=== PATIENT | female | born 1980 | race Caucasian/White ===

== ENCOUNTER 2020-11-27 13:01 | Emergency (ER) | payer OTHER ==
[2020-11-27] MEDS ORDERED: HYDROmorphone 0.5 MG/0.5 ML Syringe IVPUSH ONE ×2 (13:31→16:11)
[2020-11-27] MEDS ORDERED: Sodium Chloride 0.9% 1,000 ML IV ONE (13:31)
[2020-11-27] MEDS ORDERED: Ondansetron 4 MG/2 ML SDV IVPUSH ONE (13:31)
--- NOTE | 2020-11-27 13:39 | EDM.PDOC ---
ED HPI GENERAL MEDICAL PROBLEM - General Chief Complaint: Abdominal Pain Stated Complaint: ABDOMINAL PAIN Time Seen by Provider: 11/27/20 13:24 Source of Information: Reports: Patient History Limitations: Reports: No Limitations - History of Present Illness INITIAL COMMENTS - FREE TEXT/NARRATIVE: 40-year-old female presents the emergency department today with complaints of right upper quadrant abdominal pain nausea and vomiting. She states she noticed the onset of this about 2 hours after eating a burrito at a [place] restaurant last evening. She states 2 hours after she developed right upper quadrant pain nausea and vomiting numerous times. She states in the past she has noticed when she eats fatty or greasy foods that she does have some discomfort to her right upper quadrant. She states she still does have her gallbladder and appendix however she does have a history of hysterectomy. She denies any recent fever or chills or diarrhea or constipation associated with this. She states she was unable to sleep last night due to the right upper quadrant abdominal pain however she still did eat some toast and chicken wings at about 1030 this morning. She states she is otherwise healthy and does not take any prescription medications. 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 [No Known Home Meds] 11/27/20 [History] Past Medical History Musculoskeletal History: Reports: Other (See Below) Other Musculoskeletal History: bunionectomy - Past Surgical History HEENT Surgical History: Reports: Tonsillectomy Female Surgical History: Reports: Hysterectomy Social & Family History - Tobacco Use Tobacco Use Status *Q: Never Tobacco User - Caffeine Use Caffeine Use: Reports: Coffee, Soda, Tea - Recreational Drug Use Recreational Drug Use: No ED ROS GENERAL - Review of Systems Review Of Systems: Comprehensive ROS is negative, except as noted in HPI. ED EXAM, GI/ABD - Physical Exam Exam: See Below Exam Limited By: No Limitations General Appearance: Alert, WD/WN, Mild Distress Ears: Normal External Exam, Hearing Grossly Normal Nose: Normal Inspection Throat/Mouth: Normal Inspection, Normal Lips, Normal Voice, No Airway Compromise Head: Atraumatic, Normocephalic Neck: Normal Inspection Respiratory/Chest: No Respiratory Distress, Lungs Clear, Normal Breath Sounds, No Accessory Muscle Use, Chest Non-Tender Cardiovascular: Normal Peripheral Pulses, Regular Rate, Rhythm, No Edema, No Murmur GI/Abdominal Exam: Normal Bowel Sounds, Soft, No Distention, Guarding, Tender (Right upper quadrant) (Female) Exam: Deferred Rectal (Female) Exam: Deferred Back Exam: Normal Inspection, Full Range of Motion Extremities: Normal Inspection, Normal Range of Motion Neurological: Alert, Oriented, Normal Cognition Psychiatric: Normal Affect, Normal Mood Skin Exam: Warm, Dry, Intact, Normal Color, No Rash Lymphatic: No Adenopathy Course - Vital Signs Text/Narrative:: 40-year-old female who presents to the emergency department with complaints of right upper quadrant abdominal pain that started 2 hours after eating a [place] burrito last evening. She had subsequent nausea and vomiting noted. She states she vomited numerous times throughout the night and abdominal pain continued through the night. She states it was slightly better this morning at about 1030 she had a piece of toast and some chicken wings and the pain came back. She states she is nauseated at this time. Denies any recent fever chills or diarrhea or urinary symptoms. I have ordered labs, IV fluids as patient is likely dehydrated due to significant amount of vomiting, Zofran and Dilaudid. She will also have a CT scan of her abdomen and pelvis. Last Recorded V/S: Last Vital Signs Temp 97.3 F 11/27/20 13:19 Pulse 89 11/27/20 13:19 Resp 20 11/27/20 13:19 BP 128/81 11/27/20 13:19 Pulse Ox 99 11/27/20 13:19 - Orders/Labs/Meds Orders: Active Orders 24 hr Category Date Time Status Abdomen Pelvis w Cont [CT] Stat Exams 11/27/20 13:30 Taken Sodium Chloride 0.9% [Saline Flush] Med 11/27/20 15:00 Active 10 ml FLUSH ONETIME PRN Medication Orders Sodium Chloride (Sodium Chloride 0.9% 10 Ml Syringe) 10 ml FLUSH ONETIME PRN PRN Reason: Keep Vein Open Last Admin: 11/27/20 15:01 Dose: 10 ml Documented by: [id number] Labs: Laboratory Tests 11/27/20 11/27/20 Range/Units 14:00 14:00 WBC 9.62 (3.98-10.04) K/mm3 RBC 5.39 H (3.98-5.22) M/mm3 Hgb 15.5 (11.2-15.7) gm/dl Hct 46.9 H (34.1-44.9) % MCV 87.0 (79.4-94.8) fl MCH 28.8 (25.6-32.2) pg MCHC 33.0 (32.2-35.5) g/dl RDW Std Deviation 39.9 (36.4-46.3) fL Plt Count 346 (182-369) K/mm3 MPV 9.7 (9.4-12.3) fl Neut % (Auto) 63.8 (34.0-71.1) % Lymph % (Auto) 23.0 (19.3-51.7) % [place] % (Auto) 8.5 (4.7-12.5) % Eos % (Auto) 2.8 (0.7-5.8) Baso % (Auto) 1.1 (0.1-1.2) % Neut # (Auto) 6.13 (1.56-6.13) K/mm3 Lymph # (Auto) 2.21 (1.18-3.74) K/mm3 [place] # (Auto) 0.82 H (0.24-0.36) K/mm3 Eos # (Auto) 0.27 (0.04-0.36) K/mm3 Baso # (Auto) 0.11 H (0.01-0.08) K/mm3 Sodium 138 (136-145) mEq/L Potassium 4.1 (3.5-5.1) mEq/L Chloride 101 (98-107) mEq/L Carbon Dioxide 26 (21-32) mEq/L Anion Gap 15.1 H (5-15) BUN 14 (7-18) mg/dL Creatinine 1.1 H (0.55-1.02) mg/dL Est Cr Clr Drug Dosing 55.11 mL/min Estimated GFR (MDRD) 54 (>60) mL/min BUN/Creatinine Ratio 12.7 L (14-18) Glucose 92 (74-106) mg/dL Calcium 9.0 (8.5-10.1) mg/dL Total Bilirubin 0.4 (0.2-1.0) mg/dL GGT 19 (5-55) U/L AST 24 (15-37) U/L ALT 30 (14-59) U/L Alkaline Phosphatase 70 (46-116) U/L C-Reactive Protein 1.5 H* (<1.0) mg/dL Total Protein 7.6 (6.4-8.2) g/dl Albumin 3.8 (3.4-5.0) g/dl Globulin 3.8 gm/dL Albumin/Globulin Ratio 1.0 (1-2) Lipase 82 (73-393) U/L Meds: Medications Generic Name Dose Route Start Last Admin Trade Name Freq PRN Reason Stop Dose Admin Sodium Chloride 10 ml 11/27/20 15:00 11/27/20 15:01 Sodium Chloride 0.9% 10 Ml Syringe FLUSH 10 ml ONETIME PRN Administration Keep Vein Open Discontinued Medications Generic Name Dose Route Start Last Admin Trade Name Freq PRN Reason Stop Dose Admin Diatrizoate Meglum/Diatrizoate Sod 90 ml 11/27/20 14:13 11/27/20 14:58 Diatrizoate Meglumine/Diatrizoate Sodium 37% 120 Ml Bottle PO 11/27/20 14:14 90 ml ONETIME ONE Administration Hydromorphone HCl 0.5 mg 11/27/20 13:31 11/27/20 14:09 Hydromorphone 0.5 Mg/0.5 Ml Syringe IVPUSH 11/27/20 13:32 0.5 mg ONETIME ONE Administration Hydromorphone HCl 0.5 mg 11/27/20 16:11 11/27/20 16:30 Hydromorphone 0.5 Mg/0.5 Ml Syringe IVPUSH 11/27/20 16:12 0.5 mg ONETIME ONE Administration Sodium Chloride 1,000 mls @ 999 mls/hr 11/27/20 13:31 11/27/20 14:07 Normal Saline IV 11/27/20 14:31 999 mls/hr ONETIME ONE Administration Iopamidol 100 ml 11/27/20 14:13 Iopamidol 755 Mg/Ml 100 Ml Bottle IVPUSH 11/27/20 14:14 ONETIME ONE Iopamidol 25 ml 11/27/20 14:13 11/27/20 14:59 Iopamidol 612 Mg/Ml 100 Ml Bottle IVPUSH 11/27/20 14:14 100 ml ONETIME ONE Administration Metoclopramide HCl 5 mg 11/27/20 16:11 11/27/20 16:28 Metoclopramide 10 Mg/2 Ml Sdv IVPUSH 11/27/20 16:12 5 mg ONETIME ONE Administration Ondansetron HCl 4 mg 11/27/20 13:31 11/27/20 14:07 Ondansetron 4 Mg/2 Ml Sdv IVPUSH 11/27/20 13:32 4 mg ONETIME ONE Administration - Re-Assessments/Exams Free Text/Narrative Re-Assessment/Exam: 11/27/20 15:28 Hematology reveals a WBC of 9.62, hemoglobin 15.5, hematocrit 46.9, platelet count 346, chemistry reveals a sodium of 138, potassium of 4.1, chloride 101, carbon dioxide 26, anion gap 15.1, BUN 14, creatinine 1.1, glucose 92, GGT 19, AST 24, ALT 30, alk phos 70, C-reactive protein 1.5, lipase 82 11/27/20 16:52 vRad radiologist impression: 1. Solitary gallstone. If clinically indicated, right upper quadrant ultrasound may further Characterize. No definite CT evidence for associated inflammation. 2. Liver shows a tiny low-density lesion left lobe of liver near the gallbladder fossa probably a tiny cyst. Tiny hypodensity along the lateral right lobe of the liver possibly a tiny cyst. Gallbladder and bile ducts show 1.9 cm gallstone. Tiny hypodense lesion posterior upper pole left kidney may represent a small angio myolipoma. Moderate amount of stool throughout the colon. Moderate fluid noted in the distal small bowel. No evidence for bowel obstruction. I discussed these results with the patient and she is agreeing to stay and have an ultrasound completed of her gallbladder. 11/27/20 17:32 Radiologist impression gallbladder ultrasound: 1. Single large gallstone measures 2.2cm. 2. Other portions of the gallbladder ultrasound appear within normal limits. No gallbladder wall thickening or biliary duct dilation is seen. No pericholecystic fluid is seen. Departure - Departure Time of Disposition: 17:33 Disposition: Home, Self-Care 01 Condition: Good Clinical Impression: Cholelithiasis Qualifiers: Cholelithiasis location: gallbladder Cholecystitis presence: without cholecystitis Biliary obstruction: without biliary obstruction Qualified Code(s): K80.20 - Calculus of gallbladder without cholecystitis without obstruction - Discharge Information Instructions: Ibuprofen Dosage Chart, Pediatric Referrals: PCP,None [Primary Care Provider] - Forms: ED Department Discharge Additional Instructions: You were seen in the emergency department today with the right upper quadrant abdominal pain that started after eating [place] food last evening. He also complained of nausea and vomiting. Labs were completed and these did not show any sign of infection. CT scan and ultrasound were completed and these do show that you have stone in your gallbladder however there is no inflammation noted. Recommend that you follow-up with Dr. Amaya, surgeon at [facility], on Sunday. Recommend that you drink clear liquids for the next 24 hours and then you may advance to a bland diet. [place] diet consist of toast, oatmeal, bananas, rice, and applesauce. Stay away from anything spicy or greasy as this can trigger a gallbladder attack. Sepsis Event Note (ED) - Evaluation Sepsis Screening Result: No Definite Risk - Focused Exam Vital Signs: Vital Signs Temp Pulse Resp BP Pulse Ox 11/27/20 13:19 97.3 F 89 20 128/81 99 - My Orders Last 24 Hours: My Active Orders 11/27/20 13:30 Abdomen Pelvis w Cont [CT] Stat 11/27/20 15:00 Sodium Chloride 0.9% [Saline Flush] 10 ml FLUSH ONETIME PRN - Assessment/Plan Last 24 Hours: My Active Orders 11/27/20 13:30 Abdomen Pelvis w Cont [CT] Stat 11/27/20 15:00 Sodium Chloride 0.9% [Saline Flush] 10 ml FLUSH ONETIME PRN
[2020-11-27] MEDS ORDERED: Diatrizoate Meglumine/Diatrizoate Sodium 37% 120 ML Bottle PO ONE (14:13)
[2020-11-27] MEDS ORDERED: Iopamidol 755 Mg/ML 100 ML Bottle IVPUSH ONE (14:13)
[2020-11-27] MEDS: Iopamidol 612 MG/ML 100 ML Bottle IVPUSH ONE ×2 (14:58→14:59)
[2020-11-27] MEDS ORDERED: Sodium Chloride 0.9% 10 ML Syringe FLUSH PRN (15:00)
[2020-11-27] MEDS ORDERED: Metoclopramide 10 MG/2 ML SDV IVPUSH ONE (16:11)
--- NOTE | 2020-11-27 17:18 | US ---
Limited abdominal ultrasound: Multiple real-time images of the gallbladder were obtained. Comparison: Prior CT abdomen and pelvis study performed earlier on the same day (2:58 PM). Single large gallstone is seen. This gallstone measures 2.2 cm in size. No gallbladder wall thickening or biliary duct dilatation seen. No pericholecystic fluid is seen. Impression: 1. Single large gallstone. 2. Other portions of the gallbladder ultrasound appear within normal limits. Diagnostic code #2
--- NOTE | 2020-11-28 09:19 | CT ---
CT abdomen and pelvis Technique: Multiple axial sections were obtained from above the dome of the diaphragm inferiorly through the pubic symphysis. Intravenous and oral contrast was utilized. Reconstructed coronal and sagittal images were obtained. Comparison: No prior abdominal imaging is available. Findings: Visualized lung bases show nothing acute. Liver shows a small hypoechoic area next to the gallbladder with a second small second lesion noted within the right lobe of the liver measuring 3 mm. Both of these findings are most likely due to small cysts. Spleen appears normal. Adrenal glands show no nodule. A single gallstone is noted within the gallbladder measuring about 2.0 cm. Kidneys show symmetric contrast enhancement. Small cyst is noted within the upper left kidney measuring about 6 mm. Pancreas shows no focal abnormality. Abdominal aorta shows no aneurysm. No retroperitoneal adenopathy or mesenteric abnormalities are seen. No pelvic mass or adenopathy is identified. Appendix is seen and is normal in size. Delayed images show contrast within the distal ureters and within the bladder. Bone window settings were reviewed which show slight degenerative change within the lower thoracic spine. No acute osseous abnormality is appreciated. Impression: 1. Single gallstone within the gallbladder. 2. Two small liver lesions most likely representing minimal cysts. Small cyst within the upper left kidney. 3. No acute abnormality is appreciated on CT study of the abdomen and pelvis. Diagnostic code #2 I agree with preliminary report from [facility], finalized on 11/27/20, 4:38 PM CDT, code 1
== END 2020-11-27 17:48 | disposition home or self-care (01) ==
LOC: JD.ED 13:01
DX: K80.20 Calculus of gallbladder without cholecystitis without obstruction (principal)
CPT/HCPCS: 36415; 74177; 76705; 80053; 82977; 83690; 85025; 86140; 96374; 96375; 96376; 99284; J1170; J2405; J2765; J7030; Q9963; Q9967

== ENCOUNTER 2021-03-16 21:24 | Emergency (ER) | payer OTHER ==
--- NOTE | 2021-03-16 21:55 | EDM.PDOC ---
ED HPI GENERAL MEDICAL PROBLEM - General Chief Complaint: Allergic Reaction Stated Complaint: HIVES/ALLERGIC REACTION Time Seen by Provider: 03/16/21 21:49 - History of Present Illness INITIAL COMMENTS - FREE TEXT/NARRATIVE: 41-year-old female presents the emergency room with hives she was a type II. Around 3:00 this afternoon she had a tetanus shot. She started breaking out in hives around 7:00 this evening progressively getting worse she notices on top of her abdomen and her upper extremities more than anything. She is not have any breathing difficulties or shortness of breath. No other complaints at this time. She had a tetanus shot as part of her work-up for an upcoming surgery. - Related Data Allergies Allergy/AdvReac Type Severity Reaction Status Date / Time Tetanus Vaccines and Toxoid Allergy Hives Verified 03/16/21 21:47 Home Meds: Home Meds . [No Known Home Meds] 11/27/20 [History] Past Medical History - Past Health History Medical/Surgical History: Denies Medical/Surgical History Musculoskeletal History: Reports: Other (See Below) Other Musculoskeletal History: bunionectomy - Past Surgical History HEENT Surgical History: Reports: Tonsillectomy GI Surgical History: Reports: Cholecystectomy Female Surgical History: Reports: Hysterectomy Social & Family History - Tobacco Use Tobacco Use Status *Q: Never Tobacco User Second Hand Smoke Exposure: No - Caffeine Use Caffeine Use: Reports: Coffee, Soda, Tea - Recreational Drug Use Recreational Drug Use: No ED ROS ALLERGIC REACTION - Review of Systems Review Of Systems: See Below Constitutional: Reports: No Symptoms HEENT: Reports: No Symptoms Respiratory: Reports: No Symptoms Cardiovascular: Reports: No Symptoms GI/Abdominal: Reports: No Symptoms Skin: Reports: Urticaria (Over extensor surfaces of the forearms upper arms upper abdominal wall) Neurological: Reports: No Symptoms ED EXAM GENERAL NO PERIP PULSE - Physical Exam Exam: See Below Exam Limited By: No Limitations General Appearance: Alert, No Apparent Distress Eye Exam: Bilateral Eye: Normal Inspection Ears: Normal External Exam, Normal Canal, Hearing Grossly Normal, Normal TMs Nose: Normal Inspection, Normal Mucosa, No Blood Throat/Mouth: Normal Inspection, Normal Lips, Normal Teeth, Normal Gums, Normal Oropharynx, Normal Voice, No Airway Compromise Head: Atraumatic, Normocephalic Neck: Normal Inspection, Supple, Non-Tender, Full Range of Motion Respiratory/Chest: No Respiratory Distress, Lungs Clear, Normal Breath Sounds Cardiovascular: Regular Rate, Rhythm, No Edema, No Murmur GI/Abdominal: Normal Bowel Sounds, Soft, Non-Tender, No Organomegaly Skin Exam: Other (Urticarial type reaction over the extensor surfaces of the upper extremities and to a much lesser degree the dorsal portion of the abdomen. Minimally seen on the lower extremities) Course - Vital Signs Last Recorded V/S: Last Vital Signs Temp 36.1 C 03/16/21 21:46 Pulse 79 03/16/21 21:46 Resp 16 03/16/21 21:46 BP 125/82 03/16/21 21:46 Pulse Ox 95 03/16/21 21:46 - Orders/Labs/Meds Meds: Medications Discontinued Medications Generic Name Dose Route Start Last Admin Trade Name Martha PRN Reason Stop Dose Admin Diphenhydramine HCl 25 mg 03/16/21 22:05 03/16/21 22:14 Diphenhydramine 25 Mg Cap PO 03/16/21 22:06 25 mg ONETIME ONE Administration Famotidine 40 mg 03/16/21 22:05 03/16/21 22:14 Famotidine 20 Mg Tab PO 03/16/21 22:06 40 mg ONETIME ONE Administration - Re-Assessments/Exams Free Text/Narrative Re-Assessment/Exam: 03/16/21 22:13 I will treat her with 25 mg of p.o. Benadryl and 40 mg of p.o. famotidine. 03/16/21 22:55 Patient is doing much better and would like to go home. Departure - Departure Time of Disposition: 22:55 Disposition: Home, Self-Care 01 Clinical Impression: Hives - Discharge Information Referrals: Deirdre Kennedy MD [Primary Care Provider] - Forms: ED Department Discharge Additional Instructions: Return to the emergency room with any questions problems or worsening symptoms. Use famotidine, or Pepcid, 20 mg twice a day for the next 7 days. For breakthrough symptoms use Benadryl 25 mg every 6 hours if needed. It is possible today's events were related to the recent immunization. Follow-up with your regular physician on Sunday. Sepsis Event Note (ED) - Evaluation Sepsis Screening Result: No Definite Risk - Focused Exam Vital Signs: Vital Signs Temp Pulse Resp BP Pulse Ox 03/16/21 21:46 36.1 C 79 16 125/82 95
[2021-03-16] MEDS ORDERED: Famotidine 20 MG Tab PO ONE (22:05)
[2021-03-16] MEDS ORDERED: diphenhydrAMINE 25 MG Cap PO ONE (22:05)
== END 2021-03-16 23:10 | disposition home or self-care (01) ==
LOC: JD.ED 21:24
DX: L50.9 Urticaria, unspecified (principal)
CPT/HCPCS: 99282; A9270; 99283

== ENCOUNTER 2021-05-16 05:32 | Emergency (ER) | payer OTHER ==
--- NOTE | 2021-05-16 06:12 | EDM.PDOC ---
ED HPI GENERAL MEDICAL PROBLEM - General Chief Complaint: Genitourinary Problem Stated Complaint: BURNING WHILE URINATING Time Seen by Provider: 05/16/21 06:08 Source of Information: Reports: Patient History Limitations: Reports: No Limitations - History of Present Illness INITIAL COMMENTS - FREE TEXT/NARRATIVE: Patient is 41 old female presented to emergency room with chief complaint of dysuria. Patient reports dysuria started in the middle of the night. She reports some associated blood in her urine. States she may have some slight fever. However, she denies any flank pain, nausea, vomiting, abdominal pain, vaginal discharge, diarrhea. Reports similar symptoms back in August which was diagnosed as UTI patient was treated as an outpatient with antibiotics. Nothing seems to make symptoms better or worse. Vaginal Pain Score (Numeric/FACES): 2 - Related Data Allergies Allergy/AdvReac Type Severity Reaction Status Date / Time Tetanus Vaccines and Toxoid Allergy Hives Verified 05/16/21 05:48 Home Meds: Home Meds . [No Known Home Meds] 11/27/20 [History] Past Medical History - Past Health History Medical/Surgical History: Denies Medical/Surgical History Musculoskeletal History: Reports: Other (See Below) Other Musculoskeletal History: bunionectomy - Infectious Disease History Infectious Disease History: Reports: None - Past Surgical History HEENT Surgical History: Reports: Tonsillectomy GI Surgical History: Reports: Cholecystectomy Female Surgical History: Reports: Hysterectomy Musculoskeletal Surgical History: Reports: Other (See Below) Other Musculoskeletal Surgeries/Procedures:: L hand surgery Social & Family History - Tobacco Use Tobacco Use Status *Q: Never Tobacco User Second Hand Smoke Exposure: No - Caffeine Use Caffeine Use: Reports: Coffee - Recreational Drug Use Recreational Drug Use: No ED ROS GENERAL - Review of Systems Review Of Systems: See Below Free Text/Narrative/Comment: In addition to that documented in the HPI above, the additional ROS was obtained: Constitutional: Denies fevers or chills Eyes: Denies vision changes ENMT: Denies sore throat CV: Denies chest pain Resp: Denies SOB GI: Denies vomiting or diarrhea : Per HPI MSK: Denies recent trauma Skin: Denies new rashes Neuro: Denies new numbness or tingling or weakness Endocrine: Denies unexpected weight loss Heme: Denies bleeding disorders ED EXAM, RENAL/ - Physical Exam Exam: See Below Text/Narrative:: I have reviewed the triage vital signs Const: Well nourished, well developed, appears stated age Eyes: no conjunctival injection HENT: No signs of trauma or swelling, Neck supple without meningismus CV: Tachycardia with regular rhythm. Warm, well-perfused extremities RESP: Unlabored respiratory effort MSK: No gross deformities appreciated Skin: Warm, dry. No rashes Neuro: Alert, multimedia author II-XII grossly intact. motor function of extremities grossly intact. Psych: Appropriate mood and affect. Course - Vital Signs Last Recorded V/S: Last Vital Signs Temp 36.6 C 05/16/21 05:46 Pulse 115 H 05/16/21 05:46 Resp 18 05/16/21 05:46 BP 147/108 H 05/16/21 05:46 Pulse Ox 93 L 05/16/21 05:46 - Orders/Labs/Meds Orders: Active Orders 24 hr Category Date Time Status CULTURE URINE [MREF] Stat Lab 05/16/21 05:38 Received Labs: Laboratory Tests 05/16/21 Range/Units 05:38 Urine Color [place] H (Yellow) Urine Appearance Cloudy H (Clear) Urine pH 5.0 (5.0-8.0) Ur Specific [place] 1.015 (1.005-1.030) Urine Protein 3+ H (Negative) Urine Glucose (UA) Trace H (Negative) Urine Ketones Trace H (Negative) Urine Occult Blood 3+ H (Negative) Urine Nitrite Positive H (Negative) Urine Bilirubin 1+ H (Negative) Urine Urobilinogen 2.0 H (0.2-1.0) Ur Leukocyte Esterase 3+ H (Negative) Urine RBC >100 H (0-5) /hpf Urine WBC Too numerous to cnt H (0-5) /hpf Urine Bacteria Many H (FEW) /hpf Urine Mucus Not Reportable Departure - Departure Time of Disposition: 06:32 Disposition: Home, Self-Care 01 Clinical Impression: UTI, Urinary tract infectious disease - Discharge Information Instructions: Urinary Tract Infection, Adult, [id number] Referrals: Deirdre Kennedy MD [Primary Care Provider] - Forms: ED Department Discharge Sepsis Event Note (ED) - Evaluation Sepsis Screening Result: No Definite Risk - Focused Exam Vital Signs: Vital Signs Temp Pulse Resp BP Pulse Ox 05/16/21 05:46 36.6 C 115 H 18 147/108 H 93 L - My Orders Last 24 Hours: My Active Orders 05/16/21 05:38 CULTURE URINE [MREF] Stat - Assessment/Plan Last 24 Hours: My Active Orders 05/16/21 05:38 CULTURE URINE [MREF] Stat Assessment:: Patient is 41-year-old female presenting to the emergency room with chief complaint of symptoms concerning for urinary tract infection. Patient is afebrile not complaining of any flank pain. Demonstrates mild tachycardia but otherwise normal vital signs. Urinalysis demonstrates UTI. Patient be started on ciprofloxacin and discharged home. Return precautions given as usual. Patient agrees with plan of care.
== END 2021-05-16 06:40 | disposition home or self-care (01) ==
LOC: JD.ED 05:32
DX: N39.0 Urinary tract infection, site not specified (principal); Z88.7 Allergy status to serum and vaccine
CPT/HCPCS: 81001; 87086; 87088; 87186; 99283

== ENCOUNTER 2022-10-12 21:15 | Emergency (ER) | payer BC, OTHER ==
[2022-10-12] MEDS ORDERED: Morphine 2 MG/ML SYRINGE IVPUSH ONE (21:55)
[2022-10-12] MEDS ORDERED: Ondansetron 4 MG/2 ML SDV IVPUSH ONE (21:55)
[2022-10-12] MEDS ORDERED: Sodium Chloride 0.9% 1,000 ML IV SCH (22:00)
== END 2022-10-12 23:43 | disposition home or self-care (01) ==
LOC: JD.ED 21:15
DX: R10.32 Left lower quadrant pain (principal); Z88.7 Allergy status to serum and vaccine; Z90.49 Acquired absence of other specified parts of digestive tract; Z90.710 Acquired absence of both cervix and uterus
CPT/HCPCS: 36415; 74176; 80053; 81003; 83690; 85025; 96361; 96374; 96375; 99284; J2270; J2405; J7030

== ENCOUNTER 2024-03-20 18:43 | Emergency (ER) | payer BC ==
[2024-03-20 19:45] LABS: BASOPHILS ABSOLUTE AUTO 0.2 K/mm3 (0.0-0.2); BASOPHILS PERCENT AUTO 1.4 % (0.0-1.0); EOSINOPHILS ABSOLUTE AUTO 0.4 K/mm3 (0.0-0.4); EOSINOPHILS PERCENT AUTO 3.6 % (0.0-6.0); HEMATOCRIT 41.7 % (37.0-47.0); HEMOGLOBIN 13.7 gm/dl (12.0-16.0); IMMATURE GRAN ABSOLUTE AUTO 0.08 K/mm3 (0.00-0.05); IMMATURE GRAN PERCENT AUTO 0.7 % (0.0-0.4); LYMPHOCYTES ABSOLUTE AUTO 2.9 K/mm3 (1.0-4.8); LYMPHOCYTES PERCENT AUTO 25.3 % (24.0-44.0); MEAN CORPUSCULAR HEMOGLOBIN 28.6 pg (28.0-32.0); MEAN CORPUSCULAR HGB CONC 32.9 g/dl (32.0-36.0); MEAN CORPUSCULAR VOLUME 87.1 fl (83.0-99.0); MEAN PLATELET VOLUME 9.7 fl (9.4-12.3); MONOCYTES ABSOLUTE AUTO 0.9 K/mm3 (0.0-0.8); MONOCYTES PERCENT AUTO 7.9 % (0.0-8.0); NEUTROPHILS ABSOLUTE AUTO 6.9 K/mm3 (1.8-7.7); NEUTROPHILS PERCENT AUTO 61.1 % (41.0-71.0); PLATELET COUNT,PLT 375 K/mm3 (150-400); RED BLOOD CELL COUNT 4.79 M/mm3 (4.10-5.30); WHITE BLOOD CELL COUNT,WBC 11.35 K/mm3 (3.9-11.3)
[2024-03-20 20:00] LABS: ALANINE AMINOTRANSFERASE,ALT 24 U/L (14-59); ALBUMIN 3.6 g/dl (3.4-5.0); ALKALINE PHOSPHATASE 79 U/L (46-116); ANION GAP 15.9 (5-15); ASPARTATE AMNIOTRANSFERASE,AST 16 U/L (15-37); BILIRUBIN TOTAL 0.2 mg/dL (0.2-1.0); BLOOD UREA NITROGEN,BUN 14 mg/dL (7-18); BUN/CREATININE RATIO 12.7 (14-18); CALCIUM 8.7 mg/dL (8.5-10.1); CARBON DIOXIDE,CO2 24 mEq/L (21-32); CHLORIDE,CL 101 mEq/L (98-107); CREATININE 1.1 mg/dL (0.55-1.02); EST CRCL DRUG DOSING (CG) 52.86 mL/min; ESTIMATED GFR 63 mL/min (>60); GLUCOSE RANDOM 105 mg/dL (70-99); POTASSIUM,K 3.9 mEq/L (3.5-5.1); PROTEIN TOTAL,TP 7.3 g/dl (6.4-8.2); SODIUM,NA 137 mEq/L (136-145)
[2024-03-20 20:04] LABS: TROPONIN I HIGH SENSITIVITY < 4 pg/mL (<=51)
[2024-03-20] MEDS: Ketorolac 15 MG/ML SDV IVPUSH ONE (20:09)
== END 2024-03-20 23:45 | disposition home or self-care (01) ==
LOC: JD.ED 18:43
DX: R07.9 Chest pain, unspecified (principal); Z86.16 Personal history of COVID-19; Z90.49 Acquired absence of other specified parts of digestive tract; Z90.710 Acquired absence of both cervix and uterus; Z79.899 Other long term (current) drug therapy; Z88.7 Allergy status to serum and vaccine
CPT/HCPCS: 36415; 71045; 80053; 84484; 85025; 85379; 93005; 96374; 99285; J1885; 93010; 99283

== ENCOUNTER 2024-08-04 10:44 | Emergency (ER) | payer BC ==
[2024-08-04] MEDS: fentaNYL 100 MCG/2 ML SDV IVPUSH ONE ×3 (11:17→13:30)
[2024-08-04] MEDS: fentaNYL 100 MCG/2 ML SDV ONE (13:33)
== END 2024-08-04 14:50 ==
LOC: JD.ED 10:44
DX: S82.51XA Displaced fracture of medial malleolus of right tibia, initial encounter for closed fracture (principal); S82.831A Other fracture of upper and lower end of right fibula, initial encounter for closed fracture; Z86.16 Personal history of COVID-19; Z90.49 Acquired absence of other specified parts of digestive tract; Z90.710 Acquired absence of both cervix and uterus; Z88.7 Allergy status to serum and vaccine; Z79.899 Other long term (current) drug therapy; W00.9XXA Unspecified fall due to ice and snow, initial encounter
CPT/HCPCS: 73590-26-RT; 73590-RT; 82947; 96374; 96376; 99285-25; J3010